=== PATIENT | female | born 1975 | race African-American/Black ===

== ENCOUNTER 2020-07-13 11:13 | Outpatient (CLI) | payer MEDICARE, OTHER ==
[2020-07-14 02:13] LABS: SARS-CoV-2 PCR by NAA Not Detected (NotDetected)
== END 2020-07-13 11:14 | disposition home or self-care (01) ==
LOC: CSHLAB 11:13
PROVIDERS: ATTEND Internal Medicine Gastroenterology
DX: Z01.812 Encounter for preprocedural laboratory examination (principal); Z20.822 Contact with and (suspected) exposure to COVID-19; Z12.11 Encounter for screening for malignant neoplasm of colon
CPT/HCPCS: 87635; U0003; U0005

== ENCOUNTER 2020-07-16 09:32 | Day surgery (SDC) | payer OTHER ==
[2020-07-14 15:28] VITALS: BMI 48.2
[2020-07-16] MEDS ORDERED: Lidocaine 1% MPF 2 ML VIAL ONE (09:42)
[2020-07-16] MEDS ORDERED: PROPOFOL 40 ML ONE (11:24)
[2020-07-16] MEDS ORDERED: Lidocaine 1% PF 5 ML VIAL ONE (11:24)
[2020-07-16] MEDS ORDERED: Ondansetron PF 4 MG/2 ML Vial ONE (11:43)
[2020-07-16] MEDS ORDERED: Metoclopramide HCl 10 MG/2 ML VIAL ONE (11:43)
[2020-07-16] MEDS ORDERED: PROPOFOL 20 ML ONE (11:48)
== END 2020-07-16 12:51 | disposition home or self-care (01) ==
LOC: CSHSDC 09:32
PROVIDERS: ATTEND Internal Medicine Gastroenterology
PROC: 0DJD8ZZ Inspection of Lower Intestinal Tract, Via Natural or Artificial Opening Endoscopic (ICD-10-PCS; principal; 2020-07-16)
DX: Z12.11 Encounter for screening for malignant neoplasm of colon (principal); K64.8 Other hemorrhoids; E66.9 Obesity, unspecified; K21.9 Gastro-esophageal reflux disease without esophagitis; I25.10 Atherosclerotic heart disease of native coronary artery without angina pectoris; F41.9 Anxiety disorder, unspecified; F32.9 Major depressive disorder, single episode, unspecified; E11.9 Type 2 diabetes mellitus without complications; I10 Essential (primary) hypertension; M79.7 Fibromyalgia
CPT/HCPCS: 36416; J2405; J2704; J2765

== ENCOUNTER 2020-10-29 13:47 | Outpatient (CLI) | payer MEDICARE, OTHER | END 2020-10-29 13:48 | disposition home or self-care (01) | LOC: CSHLAB 13:47 | PROVIDERS: ATTEND Orthopaedic Surgery | DX: Z20.822 Contact with and (suspected) exposure to COVID-19 (principal); Z01.812 Encounter for preprocedural laboratory examination; M46.1 Sacroiliitis, not elsewhere classified; M54.17 Radiculopathy, lumbosacral region | CPT/HCPCS: 80048; 85027; 85610; 85730; 86850; 86900; 86901; U0003; U0005 ==

== ENCOUNTER 2021-02-09 13:19 | Outpatient (CLI) | payer OTHER | END 2021-02-09 13:20 | disposition home or self-care (01) | LOC: CSHMAMMO 13:19 | PROVIDERS: ATTEND Nurse Practitioner Family | DX: N64.4 Mastodynia (principal) | CPT/HCPCS: 77066; G0279 ==